=== PATIENT | female | born 1965 | race Two or more races ===

== ENCOUNTER → 2024-04-20 | Outpatient (CLI) | payer MEDICAID, SELFPAY ==
--- NOTE | 2024-04-20 13:00 | XR_ITS ---
Examination: Retroperitoneal ultrasound, complete Technique: Multiple high resolution grayscale images of the retroperitoneum obtained, including kidneys and bladder. Exam date and time:April 20, 2024 1328 hours INDICATIONS: Abnormal outside renal laboratory examination by U/month renal insufficiency FINDINGS: Right kidney 11.4 x 6.3 x 5.8 cm cortex 1.8 cm Left kidney 12.8 x 6.5 x 5.0 cm renal cortex 2.2 cm Mild bilateral hydronephrosis Moderate bilateral renal parenchymal scar formation No bladder mass or bladder calculi Bladder prevoid volume 152 cc postvoid volume 0 cc IMPRESSION: Mild bilateral hydronephrosis Moderate bilateral renal parenchymal scar formation
== END | disposition home or self-care (01) ==
PROVIDERS: PCP Nurse Practitioner Primary Care; Referring Provider Nurse Practitioner Primary Care; Visit Provider Nurse Practitioner Primary Care
DX: N13.30 Unspecified hydronephrosis (principal); N28.89 Other specified disorders of kidney and ureter
CPT/HCPCS: 76770

== ENCOUNTER → 2024-04-24 | Outpatient (CLI) | payer MEDICAID, SELFPAY ==
--- NOTE | 2024-04-24 10:00 | XR_ITS ---
Examination: Breast ultrasound, unilateral, right complete Date and time of exam: April 24, 2024 1027 hours INDICATIONS: Right breast sonogram September 02, 2023 12:00 nodule 15 x 14 mm Technique: Real-time robertson scale ultrasonographic imaging performed right breast including all 4 quadrants as well as nipple retroareolar and axillary region. Findings: 12:00 oval mass circumscribed 14 x 6 x 15 mm 4.1 cm right axillary lymph node IMPRESSION: BI-RADS Category 3: Probably benign findings Recommend 1 additional 6 month right breast sonogram follow-up to document stability of 12:00 nodule described above as well as enlarged right axillary lymph node
--- NOTE | 2024-04-24 10:30 | XR_ITS ---
Examination: Diagnostic digital mammography, unilateral, right Computer aided detection 3-D breast Tomosynthesis, unilateral Date and time of exam: April 24, 2024 1037 hours INDICATIONS: Mammogram 12/30/2023 12:00 nodule 10 mm right breast Technique: Nonmagnified MLO, CC views of the right breast have been obtained, reconstructed from 3-D Tomosynthesis images. R2 computer aided detection program utilized for evaluation of suspicious masses and/or abnormal calcifications. 3-D Tomosynthesis images obtained. Findings: Scattered areas of fibroglandular density Benign calcifications No suspicious mass noted. Impression: BI-RADS category 2: Benign findings Recommend yearly follow-up mammography Please see the right breast sonogram report today indicating 12:00 nodule 14 x 6 x 15 mm requiring six-month follow-up right breast sonogram
== END | disposition home or self-care (01) ==
LOC: CDIM 09:54
PROVIDERS: PCP Nurse Practitioner Primary Care; Referring Provider Nurse Practitioner Primary Care; Visit Provider Nurse Practitioner Primary Care
DX: R92.321 Mammographic fibroglandular density, right breast (principal); N63.15 Unspecified lump in the right breast, overlapping quadrants; R59.0 Localized enlarged lymph nodes
CPT/HCPCS: 76641; 77061; 77065; G0279

== ENCOUNTER → 2024-05-28 | Outpatient (CLI) | payer MEDICAID, SELFPAY ==
--- NOTE | 2024-05-28 14:20 | XR_ITS ---
Examination: Knee, left , 3 views Technique: Knee AP, lateral, oblique 3 views Date and time of exam: May 28, 2024 1448 hrs. Indications: Patient fell 10.2024 with injury, persistent knee pain. Findings: Advanced narrowing medial joint space left knee Significant osteoarthritis patellofemoral joint No acute fracture Small knee effusion Impression: No acute fracture
--- NOTE | 2024-05-28 14:20 | XR_ITS ---
Examination: AP knees single view Technique: Standing bilateral AP knees single view Exam date and time: May 28, 2024 at 1455 hrs. Indications: Patient fell April 24, 2024 with injury to the knee, burning sensation left knee. Findings: Severe narrowing medial joint space right knee Significant osteoarthritis lateral joint space right knee No acute fracture Impression: No acute fracture
== END | disposition home or self-care (01) ==
PROVIDERS: PCP Nurse Practitioner Primary Care; Referring Provider Nurse Practitioner Primary Care; Visit Provider Nurse Practitioner Primary Care
DX: S89.92XA Unspecified injury of left lower leg, initial encounter (principal); W19.XXXA Unspecified fall, initial encounter
CPT/HCPCS: 73560; 73562; 73564; 73565

== ENCOUNTER 2024-06-24 09:27 | Outpatient (RCR) | payer MEDICAID, SELFPAY ==
--- NOTE | 2024-06-24 10:50 | CTCTRTNOTE_ITS ---
[facility] [address] [place], [place] [address] Follow-up note date: 06/24/2024 ?? Name: TEN TREVIÑO : 1965 Identification. 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 ER negative OH 30% positive mismatch repair equivocal or no loss of expression. Arachnys no significant mutations. CT 02/04/2024 new 2 mm pulmonary nodule right lower lobe 6 months follow-up CT recommended without contrast. No interval met disease in abdomen or pelvis. Had labs 06/18/2024 CEA 1.0 CA125 10.5 Getting regular pelvic exams in [place] with [facility]. Her main problem is knee pains due to arthritis x-ray shows no fractures recently I will see her in [address] scan of the chest and blood test. Electronically signed by: Yann Chacon M.D. 06/24/2024 10:48 AM
== END 2024-07-22 23:59 | disposition home or self-care (01) ==
LOC: SCTC 09:27
PROVIDERS: PCP Nurse Practitioner Primary Care; Referring Provider Nurse Practitioner Primary Care; Visit Provider Radiology Therapeutic Radiology
DX: C54.1 Malignant neoplasm of endometrium (principal); Z17.1 Estrogen receptor negative status [ER-]; Z17.21 Progesterone receptor positive status
CPT/HCPCS: 99213; G0463

== ENCOUNTER → 2024-08-19 | Outpatient (CLI) | payer MEDICAID, SELFPAY ==
--- NOTE | 2024-08-19 15:30 | XR_ITS ---
Examination: CT chest, without intravenous contrast. Sagittal and coronal 2-D reconstructions. Exam date and time: August 19, 2024, 1548 hours Comparison February 04, 2024 INDICATIONS: Malignant neoplasm uterus, pulmonary nodules on CT chest February 04, 2024 CTDI:vol (mGy) 21.9 DLP: (mGycm) 732 Technique: Multiple 3.0 mm axial sections of the chest to been obtained. Bone and lung density settings are obtained. Sagittal and coronal 2-D reconstructions have been obtained. Low dose protocols were performed. One or more of the following dose reduction techniques were used; automated exposure control, adjustment of the mA and/or KV according to patient size, use of iterative reconstruction technique. Findings: No thoracic aortic aneurysmal dilatation Pulmonary artery segments are not enlarged. Moderate calcification left anterior descending coronary artery Stable bilateral subcentimeter pulmonary nodules. No new pulmonary nodules No mediastinal lymphadenopathy Hepatomegaly partially visualized with fatty infiltration throughout the liver Absent gallbladder Moderate diffuse thoracic disc narrowing IMPRESSION: Stable bilateral subcentimeter pulmonary nodules compared with February 04, 2024 No new pulmonary nodules Significant hepatomegaly fatty liver
== END | disposition home or self-care (01) ==
LOC: CCTX 15:19
PROVIDERS: PCP Nurse Practitioner Primary Care; Referring Provider Radiology Therapeutic Radiology; Visit Provider Radiology Therapeutic Radiology
DX: R91.8 Other nonspecific abnormal finding of lung field (principal); K76.0 Fatty (change of) liver, not elsewhere classified; C55 Malignant neoplasm of uterus, part unspecified
CPT/HCPCS: 71250

== ENCOUNTER → 2024-08-26 | Outpatient (CLI) | payer MEDICAID, SELFPAY ==
--- NOTE | 2024-08-26 17:00 | XR_ITS ---
Exam: MRI knee without contrast, left Date and time of exam: August 26, 2024 1837 hours INDICATIONS: Patient fell November 2022 and April 25, 2024 with injury to the knee generalized knee pain instability swelling joint clicking Technique: Multiple axial, coronal, and sagittal sections on the knee have been obtained. T2-Weighted sagittal, fat-suppressed images, TR 3,500, TE 62, T2 weighted coronal fat-saturated images, TR 3,500, TE 62 Proton density sagittal sections, TR 1800, TE 31. T-1 weighted coronal images, TR 524, TE 13.0 Findings: Medial meniscus anterior horn truncation inner margin. Medial meniscus, body truncation inner margin extruded from the joint space. Posterior horn medial meniscus oblique linear tear communicating inferior articular surface. Lateral meniscus anterior horn is intact Lateral meniscus, body is intact Posterior horn lateral meniscus is intact Anterior cruciate ligament high-grade sprain. Posterior cruciate ligament appears intact. Knee effusion is moderate. Quadriceps and patellar tendons appear intact. There is no evidence of tendinosis. Inflammatory change or fracture of Hoffa's fat pad is not seen. Medial patellar facet demonstrates severe thinning. Lateral patellar facet cartilage demonstrates severe thinning. Trochlear cartilage demonstrates severe thinning. Marrow signal adequate. Medial collateral ligament appears intact. No meniscocapsular separation is seen. Illiotibial band and fibular collateral ligament are intact. Biceps femoris tendons appear intact. Medial femoral condylar articular cartilage demonstrates severe thinning. Lateral femoral condylar articular cartilage demonstratesmoderate thinning. Tibial plateau cartilage demonstrates severe medial thinning. Impression: Extensive medial meniscus tears High-grade sprain anterior cruciate ligament Severe thinning cartilage patellofemoral and medial joint spaces
== END | disposition home or self-care (01) ==
PROVIDERS: PCP Nurse Practitioner Primary Care; Referring Provider Nurse Practitioner Primary Care; Visit Provider Nurse Practitioner Primary Care
DX: S83.242A Other tear of medial meniscus, current injury, left knee, initial encounter (principal); S83.512A Sprain of anterior cruciate ligament of left knee, initial encounter; W19.XXXA Unspecified fall, initial encounter; M25.862 Other specified joint disorders, left knee
CPT/HCPCS: 73721

== ENCOUNTER → 2024-11-18 | Outpatient (CLI) | payer MEDICAID, SELFPAY ==
--- NOTE | 2024-11-18 13:00 | XR_ITS ---
Examination: Screening digital mammography, bilateral Computer aided detection 3-D breast Tomosynthesis, bilateral Date and time of exam: 11/18/2024, 1:20 PM Comparisons: May 2022 through March 2024 Indications: Screening Technique: Nonmagnified MLO, CC views of the breasts to been obtained, reconstructed from 3-D Tomosynthesis images. R2 computer aided detection program utilized for evaluation of suspicious masses and/or abnormal calcifications. 3-D Tomosynthesis images obtained. Technologist: Findings: There are scattered areas of fibroglandular density. Stable benign appearing 1.5 cm mass 12:00 right breast. No evidence of suspicious masses or suspicious calcifications. Impression: BI-RADS category 2: Benign findings Recommend 1 year follow-up mammogram
== END | disposition home or self-care (01) ==
PROVIDERS: Referring Provider Nurse Practitioner Primary Care; Visit Provider Nurse Practitioner Primary Care
DX: Z12.31 Encounter for screening mammogram for malignant neoplasm of breast (principal); R92.323 Mammographic fibroglandular density, bilateral breasts
CPT/HCPCS: 77063; 77067

== ENCOUNTER 2024-12-30 09:31 | Outpatient (RCR) | payer MEDICAID, SELFPAY ==
--- NOTE | 2024-12-30 10:36 | CTCFLWUP_ITS ---
[facility] [address] [place], [place] [address] FOLLOW-UP NOTE Date: 12/30/2024 MR#: [id number] Name: TEN TREVIÑO : 1965 Dx: C55 Malignant neoplasm of uterus, part unspecified Identification. Patient with endometrioid type endometrial carcinoma FIGO grade 1 stage IA ER negative ID 30% positive mismatch repair equivocal or no loss of expression. 4.5 cm in greatest dimension 40% myometrial invasion no lymph nodes submitted or found Surgery performed by Dr. Carolina Brown, [facility] 11/07/2022 Adjuvant therapy was not recommended by [facility] and NCCN guidelines.. Simplesurance no significant mutations. Going to [place] every 6 months for pelvic exams. Had CT chest abdomen pelvis 02/04/2024 2 mm pulmonary nodule right lower lobe. Repeat CT chest 08/19/2024 stable bilateral subcentimeter pulmonary nodules. Patient states she is not having persistent upper respiratory symptoms and frequent diarrhea being followed by her primary care provider Rafia Watts. HAI-Aj Most recent labs December 24, 2024 WBC 9.7 glucose was 67 BUN 25 creatinine 0.85 rest of CMP unremarkable. CA125 was favorably low 11.0 and CEA is 1.1. As I examine her today her lung sounds clear abdomen soft. A#1. Endometrioid uterine CA stage IA status post 11/07/2022. A#2 no adjuvant therapy offered or recommended. A# 3patient sees her [facility] oncologist regularly including pelvic exams every 6 months. A#4. Recent radiographs and blood tests suggest no sign of recurrent uterine cancer. A#5. I will see her again in 4 months time. A#6. Urged patient see her primary care provider for continued respiratory and GI symptoms. Cc: HAI Rojas MD [place] Electronically signed by: Yann Chacon M.D. 12/30/2024 10:34 AM
== END 2025-01-22 23:59 | disposition home or self-care (01) ==
LOC: SCTC 09:31
PROVIDERS: PCP Nurse Practitioner Primary Care; Referring Provider Nurse Practitioner Primary Care; Visit Provider Radiology Therapeutic Radiology
DX: Z08 Encounter for follow-up examination after completed treatment for malignant neoplasm (principal); Z85.42 Personal history of malignant neoplasm of other parts of uterus; R91.8 Other nonspecific abnormal finding of lung field
CPT/HCPCS: 99213; G0463